=== PATIENT | female | born 1995 | race Caucasian/White ===

== ENCOUNTER 2019-01-10 16:13 | Emergency (ER) | payer OTHER ==
[2019-01-10] MEDS ORDERED: NS 1,000 ML IV ONE (16:44)
--- NOTE | 2019-01-10 16:45 | EDPHY ---
HPI/HX/ROS/PE/MDM Narrative: CHIEF COMPLAINT: Syncope HPI: The patient is a 23-year-old female with no significant past medical history. Yesterday she was buying tea at a local restaurant when she began to experience tunnel vision and then briefly lost consciousness. She did strike the back of her head on a counter on the way down. Following that episode she drink water and felt better. She continued to hang out with her friends yesterday and today. She presents to the emergency department today because her mother picked her up and wanted her to get checked out. The patient complains of very mild headache but otherwise feels fine. She has no history of prior syncopal episode. She believes that she was mildly dehydrated yesterday which may have been the cause of the syncopal episode. Last menstrual period was 1 week ago and was normal. No vomiting, vision changes, numbness, weakness. REVIEW OF SYSTEMS: Aside from elements discussed in the HPI, a comprehensive 10-point review of systems was reviewed and is negative. PMH: None significant. SOCIAL HISTORY: Student. 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 PHYSICAL EXAM: General:Patient is alert, in no acute distress. She is well-appearing and pleasant. Head: There is a mild contusion noted to the right occiput. No deformity or crepitus. ENT:Eyes are normal to inspection. ENT inspection normal. Neck: Normal inspection. Full range of motion. Respiratory:No respiratory distress. Breath sounds normal bilaterally. Cardiovascular: Regular rate and rhythm. Strong peripheral pulses. Normal cap refill. Abdomen:The abdomen is nontender to palpation. There are no peritoneal signs. There are normal bowel sounds. Back: Normal to inspection. No tenderness to palpation. Skin: Normal color. No rash. Warm and dry. Extremities: Normal appearance. Full range of motion. Neuro: Oriented x3. Normal motor function. Normal sensory function. MDM: This is a young healthy female with an isolated episode of syncope without concerning features that occurred yesterday. We performed an extensive workup in the ED which is negative for evidence of PE, arrhythmia, or electrolyte disturbance. She and her mother are comfortable with the plan to be discharged. Given time course and extremely reassuring exam, we discussed option of CTH but I do not think this is indicated and patient agrees. We discussed strict return precautions. - Data Points Laboratory Results: Laboratory Results 01/10/19 17:00 04/04/19 17:00 01/10/19 01/10/19 01/10/19 17:00 17:00 17:00 WBC 9.28 10^3/uL 10^3/uL (3.80-9.50) RBC 4.39 10^6/uL 10^6/uL (4.18-5.33) Hgb 13.9 g/dL g/dL (12.6-16.3) Hct 39.6 % % (38.0-47.0) MCV 90.2 fL fL (81.5-99.8) MCH 31.7 pg pg (27.9-34.1) MCHC 35.1 g/dL g/dL (32.4-36.7) RDW 12.3 % % (11.5-15.2) Plt Count 253 10^3/uL 10^3/uL (150-400) MPV 9.7 fL fL (8.7-11.7) Neut % (Auto) 68.1 % % (39.3-74.2) Lymph % (Auto) 23.2 % % (15.0-45.0) Butts % (Auto) 7.0 % % (4.5-13.0) Eos % (Auto) 1.2 % % (0.6-7.6) Baso % (Auto) 0.3 % % (0.3-1.7) Nucleat RBC Rel Count 0.0 % % (0.0-0.2) Absolute Neuts (auto) 6.32 10^3/uL 10^3/uL (1.70-6.50) Absolute Lymphs (auto) 2.15 10^3/uL 10^3/uL (1.00-3.00) Absolute Monos (auto) 0.65 10^3/uL 10^3/uL (0.30-0.80) Absolute Eos (auto) 0.11 10^3/uL 10^3/uL (0.03-0.40) Absolute Basos (auto) 0.03 10^3/uL 10^3/uL (0.02-0.10) Absolute Nucleated RBC 0.00 10^3/uL 10^3/uL (0-0.01) Immature Gran % 0.2 % % (0.0-1.1) Immature Gran # 0.02 10^3/uL 10^3/uL (0.00-0.10) Sodium 139 mEq/L mEq/L (135-145) Potassium 3.5 mEq/L mEq/L (3.5-5.2) Chloride 103 mEq/L mEq/L (97-110) Carbon Dioxide 26 mEq/l mEq/l (22-31) Anion Gap 10 mEq/L mEq/L (6-14) BUN 11 mg/dL mg/dL (7-23) Creatinine 0.7 mg/dL mg/dL (0.6-1.0) Estimated GFR > 60 Glucose 93 mg/dL mg/dL (70-100) Calcium 9.0 mg/dL mg/dL (8.5-10.4) Beta HCG, Qual NEGATIVE Medications Given: Discontinued Medications Sodium Chloride (Ns) 1,000 mls @ 0 mls/hr IV EDNOW ONE; Wide Open PRN Reason: Protocol Stop: 01/10/19 16:45 Last Admin: 01/10/19 17:01 Dose: 1,000 mls General Time Seen by Provider: 01/10/19 16:29 Initial Vital Signs: Initial Vital Signs Temperature (C) 37.0 C 01/10/19 16:32 Heart Rate 72 01/10/19 16:32 Respiratory Rate 16 01/10/19 16:32 Blood Pressure 128/75 H 01/10/19 16:32 O2 Sat (%) 99 01/10/19 16:32 O2 Delivery Mode Room Air Allergies/Adverse Reactions: No Known Allergies Allergy (Unverified 01/10/19 16:30) Home Medications: Medication Instructions Recorded NK [No Known Home Meds] 01/10/19 Departure - Departure Disposition: Home, Routine, Self-Care Clinical Impression: Syncope, Head injury Condition: Good Instructions: Syncope (ED) Additional Instructions: Follow-up with your primary doctor within 72 hours. Return to the Emergency Department for fever, chest pain, shortness of breath, passing out or other worsening of condition. Referrals: JOSHUA ALARCON [Other] - As per Instructions
[2019-01-10 17:22] LABS: PLATELET COUNT 253 10^3/uL (150-400)
[2019-01-10 18:02] VITALS: BP 118/78
--- NOTE | 2019-01-13 15:18 | CPEKG ---
Test Reason : OPEN Blood Pressure : / mmHG Vent. Rate : 068 BPM Atrial Rate : 066 BPM P-R Int : 126 ms QRS Dur : 085 ms QT Int : 422 ms P-R-T Axes : 019 060 018 degrees QTc Int : 449 ms Sinus rhythm Confirmed by Enzo Cobb ([id number] on 01/13/2019 3:18:06 PM Referred By: Enzo Cobb Confirmed By:Enzo Cobb
== END 2019-01-10 18:05 | disposition home or self-care (01) ==
DX: S06.9X9A Unspecified intracranial injury with loss of consciousness of unspecified duration, initial encounter (principal); R55 Syncope and collapse; E86.9 Volume depletion, unspecified; W22.8XXA Striking against or struck by other objects, initial encounter; Y92.511 Restaurant or cafe as the place of occurrence of the external cause; Y99.9 Unspecified external cause status